=== PATIENT | female | born 1980 | race Native Hawaiian/Other Pacific Islander ===

== ENCOUNTER 2018-08-17 16:25 | Emergency (ER) | payer BC, MEDICAID, OTHER ==
[2018-08-17 17:39] VITALS: BMI 32.4
[2018-08-17] MEDS ORDERED: Lactated Ringer's 1,000 ML IV SCH (17:45)
[2018-08-17 20:53] LABS: BASO % 0.3 % (0.0-2.0); EOS # 0.1 K/uL (0.0-0.7); EOS % 1.2 % (0.0-4.0); HEMOGLOBIN 11.8 g/dL (12.0-16.0); LYMPH # 1.7 K/uL (1.0-4.3); MEAN CELL VOLUME 85.1 fl (81.0-99.0); MEAN CORPUSCULAR HGB CONC 31.8 g/dL (33.0-37.0); MEAN PLATELET VOLUME 7.5 fl (7.2-11.7); MONO # 0.8 K/uL (0.0-0.8); MONO % 6.7 % (0.0-10.0); NEUT # 9.6 K/uL (1.8-7.0); NEUT % 77.8 % (50.0-75.0); RBC 4.36 Mil/uL (3.80-5.20); RED CELL DISTRIBUTION WIDTH 16.1 % (11.5-14.5); WHITE BLOOD COUNT 12.3 K/uL (4.8-10.8)
--- NOTE | 2018-08-18 07:07 | OBHP ---
Datetime: 08/17/2018 17:25 IP Adm Impression: Term, intrauterine IP Admit Plan: Observation/Evaluation; Discharge home Admit Comment, IP Provider: 37 y/o AMA, , 39.3 wks based on US with MADAN of 08/21/18 presents t o [facility] with abdominal pain and contractions. Contractions started 2 am this monring, about 6/10, star ts from upper abdomen and goes down, lasts for about 5 mins, intermittent every 2 hours. Patient korina es any VB, LOF. Endorses good movements. Tolerating diet well PO. Denies any headache, CP, N/V/ D. Patient was scheduled for C- section tomorrow at [facility] but she doesn't want to go there. Patient h ad previous C section in 2015. course: @ [facility], Denies any complications. GBS + ObHx: C section 01/2018 due to distress. PMHx: Scoliosis PSHx: C section Allergies: Pollen, dust Meds: tylenol PRN Social Hx: Denies alochol/tobacco/drugs SexualHx: Denies STIs F/H: Denies O: VS stable PE general: NAD Chest: S1S2 present, RRR Lungs: CTA B/L Abdomen: Gravid, Mild tenderness over fundus and right sided abdomen, BS + SVE: Closed, high, No active VB Neuro: AAO x 3 A/P: 37 y/o AMA, with history of p-revious C section, , 39.3 wks based on US with MADAN of presents to [facility] with abdominal pain and contractions. - EFM and Tocomonitoring - Irregular contractions, Cervix closed, high - NST reactive, No decels - LR @ 999ml/hr - Will schedule patient for C section tomorrow. Patient advised to maintain hydraration Case discussed with attending. Dr. Ming Chávez, PGY1 Addendum: I saw on exam patient at presentation and follow-up. No evidence of labor at this time. hear t tracing category 1. Patient scheduled for repeat tomorrow at [facility], the patient would r ather be scheduled here at [facility]. Patient scheduled for repeat tomorrow at 9 AM. Renetta ent given preoperative instructions and discharged home with labor precautions. Patient will return t o labor and delivery tomorrow morning at 7 AM for repeat . [place] Pelvic Type - PN: Not Done Extremities - PN: Normal Abdomen - PN: Normal Back - PN: Normal Breast - PN: Not Done Lungs - PN: Normal Heart - PN: Normal Thyroid - PN: Not Done Neurologic - PN: Normal HEENT - PN: Normal General - PN: Normal FHR - Baseline A Provider: 140 Membranes, Provider: Intact Contraction Comments Provider: Irregular Comments, ACOG Physical Exam: general: NAD Chest: S1S2 present, RRR Lungs: CTA B/L Abdomen: Gravid, Mild tenderness over fundus and right sided abdomen, BS + SVE: Closed, high, No active VB Extremity: Trace pedal edema, No calf tenderness Neuro: AAO x 3 IP Hx Assessment: The History has been Reviewed and is Current EGA AdmitDate IP: 39.3 Vital Signs Provider: Reviewed; Within Normal Limits IP Chief Complaint: Uterine contractions; Maternal discomfort NICHD Variability Prov Fetus A: Moderate 6-25bpm NICHD Accel Fetus A IP Provider: 15X15 FHR Category Provider Fetus A: Category I NICHD Decel Fetus A IP Provider: None Dilatation, Provider: 0 Effacement, Provider: 0 Station, Provider: High Genitourinary Exam: Normal DTRs - PN: Not Done
== END 2018-08-17 19:55 | disposition home or self-care (01) ==
LOC: H.EROB2 16:25
DX: O26.93 Pregnancy related conditions, unspecified, third trimester (principal); R10.2 Pelvic and perineal pain; Z3A.39 39 weeks gestation of pregnancy; O47.1 False labor at or after 37 completed weeks of gestation
CPT/HCPCS: 85025; 86850; 86900; 99283; J7120

== ENCOUNTER 2018-08-18 07:06 | Inpatient (IN) | payer OTHER ==
[2018-08-17 17:39] VITALS: BMI 32.4
[2018-08-18] MEDS: Lactated Ringer's 1,000 ML IV ONE ×2 (07:30→08:30)
[2018-08-18] MEDS ORDERED: OXYTOCIN/0.9 % NS 20 UNIT/1,000 ML BAG IV ONE (07:30)
[2018-08-18] MEDS ORDERED: Oxytocin 30 UNIT 30 UNITS/500 ML BAG IV ONE ×2 (07:30→07:43)
[2018-08-18] MEDS ORDERED: OXYTOCIN/0.9 % NS 20 UNIT/1,000 ML BAG IV SCH ×2 (07:45→14:28)
[2018-08-18] MEDS ORDERED: Morphine 1 mg/ml preservative-free Inj(Duramorph) ONE (08:02)
[2018-08-18] MEDS ORDERED: ePHEDrine 50 mg/ml Inj ONE (08:02)
[2018-08-18] MEDS ORDERED: Sodium Chloride 0.9% 10 ML IV ONE (08:05)
[2018-08-18] MEDS ORDERED: ceFAZolin 2 GM in Sodium Chloride 0.9% 100 ML IVPB ONE (08:15)
[2018-08-18 08:32] LABS: BASO % 0.2 % (0.0-2.0); EOS # 0.2 K/uL (0.0-0.7); EOS % 1.5 % (0.0-4.0); HEMOGLOBIN 12.6 g/dL (12.0-16.0); LYMPH # 1.6 K/uL (1.0-4.3); LYMPH % 15.1 % (20.0-40.0); MEAN CELL VOLUME 86.7 fl (81.0-99.0); MEAN CORPUSCULAR HEMOGLOBIN 27.4 pg (27.0-31.0); MEAN CORPUSCULAR HGB CONC 31.6 g/dL (33.0-37.0); MEAN PLATELET VOLUME 7.7 fl (7.2-11.7); MONO # 0.7 K/uL (0.0-0.8); MONO % 6.7 % (0.0-10.0); NEUT # 8.2 K/uL (1.8-7.0); NEUT % 76.5 % (50.0-75.0); NRBC % 0.1 % (0.0-0.0); RBC 4.6 Mil/uL (3.80-5.20); RED CELL DISTRIBUTION WIDTH 15.4 % (11.5-14.5); WHITE BLOOD COUNT 10.7 K/uL (4.8-10.8)
[2018-08-18] MEDS ORDERED: Lactated Ringer's 1,000 ML IV SCH ×2 (08:45→11:45)
--- NOTE | 2018-08-18 08:55 | OBADHP ---
Datetime: 08/18/2018 08:01 Admit Comment, IP Provider: Pt is a 39.4wk based on 12 wk U/S. MADAN 08/21/18. Here for a sched uled C section, she started experiencing contractions yesterday and they continue this AM. Denies LOF , or vaginal bleeding. Reports good movement. OB Provider- [facility] [place]- Dr. 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 Briones -Breanna Bojorquez- PGY1 OB Hospitalist Addendum: 37 yo at 39+ 4 wks w/ a h/o previous c/s, scheduled for a repeat c/s today. Consents for procedure and possible transfusion obtained. (ES) Pelvic Type - PN: Adequate Extremities - PN: Normal Abdomen - PN: Normal Back - PN: Not Done Breast - PN: Not Done Lungs - PN: Normal Heart - PN: Normal Thyroid - PN: Not Done Neurologic - PN: Normal HEENT - PN: Normal General - PN: Normal FHR - Baseline A Provider: 145 Membranes, Provider: Intact Comments, ACOG Physical Exam: Gravid Abdomen +S1S2 RRR No wheezing, rales or rhonchi, CTA trace edema Pool Provider: Negative IP Hx Assessment: The History has been Reviewed and is Current Vital Signs Provider: Reviewed IP Chief Complaint: Uterine contractions; Scheduled Section NICHD Variability Prov Fetus A: Moderate 6-25bpm NICHD Accel Fetus A IP Provider: 15X15 FHR Category Provider Fetus A: Category I NICHD Decel Fetus A IP Provider: None Genitourinary Exam: Not Done DTRs - PN: Not Done EGA AdmitDate IP: 39.4 IP Adm Impression: Term, intrauterine ; No Active Labor; Intact Membranes IP Admit Plan: Admit to unit; Initiate Section protocol Datetime: 08/17/2018 17:25 Contraction Comments Provider: Irregular Dilatation, Provider: 0 Effacement, Provider: 0 Station, Provider: High
[2018-08-18 08:58] LABS: ALB/GLOB RATIO 0.9 (1.0-2.1); ALBUMIN 3.4 g/dL (3.5-5.0); ALT/SGPT 16 U/L (9-52); AST/SGOT 33 U/L (14-36); BLOOD UREA NITROGEN 9 mg/dl (7-17); GFR NON-AFRICAN AMERICAN > 60
[2018-08-18] MEDS ORDERED: Cellulose Hemostat 2X3 Sheet ONE (10:47)
[2018-08-18] MEDS ORDERED: DiphenhydrAMINE 50 mg/ml Inj IVP PRN ×2 (10:59→14:28)
[2018-08-18] MEDS ORDERED: Oxycodone/Acetaminophen 5/325 mg Tab PO PRN ×6 (10:59→14:28)
[2018-08-18] MEDS ORDERED: DiphenhydrAMINE 50 mg/ml Inj ONE (11:13)
--- NOTE | 2018-08-18 11:33 | OBDS ---
DELIVERY PERSONNEL Delivery Doctor: Dr. WEST (ob fellow) Spray Stainer: Madonna Duval RN Anesthesiologist: Candy Everett MD Resident: Dr. Bojorquez ob resident MATERNAL INFORMATION Delivery Anesthesia: Spinal Medications in Delivery: Pitocin 30units. Placenta Cultured: No Maternal Complications: None RN Comments: Surgicel Provider Comments: Pre-op dx: 37 yo at 39+4 wks w/ h/o previous c/s, scheduled for repeat c/ s Post-op dx: Same Procedure: Repeat low tranverse section Surgeon: Anselmo Assistants Christo West, OB fellow and Breanna Bojorquez, PGY-1 Anesthesiologist: Dr. Everett Anesthesia: Spinal Findings: Viable male delivered through clear fluid at 1032 w/ nuchal cord x 1, Apgars 9 an d 9. Wt 2860 gms, 6#5. Nl appearing uterus, tube and ovaries, anterior abdominal was scarred Complications: None EBL: 900mL LABOR SUMMARY EDC: 08/21/2018 00:00 No. Babies in Womb: 1 Attempted: No Labor Anesthesia: None LABOR INFORMATION Reason for Induction: Not Applicable Onset of Labor: Not in Labor Oxytocin: N/A Group B Beta Strep: Positive Antibiotics # of Doses: n/a Antibiotics Time of Last Dose: n/a Steroids Given: None Reason Steroids Not Administered: Not Applicable MEMBRANES Membranes Rupture Method: Artificial Rupture of Membranes: 08/18/2018 10:31 Length of Rupture (hrs): 0.02 Amniotic Fluid Color: Clear Amniotic Fluid Amount: Small Amniotic Fluid Odor: Normal STAGES OF LABOR Stage 3 hrs: 0 Stage 3 min: 0 CSECTION DELIVERY Primary Indication: Repeat Elective Secondary Indication: Repeat Elective CSection Urgency: Elective CSection Incidence: Repeat Labor: N/A Elective: N/A CSection Incision: Lower Vertical BABY A INFORMATION Infant Delivery Date/Time: 08/18/2018 10:32 Method of Delivery: Vaginal Born in Route : No : N/A Forceps: N/A Vacuum Extraction: N/A Shoulder Dystocia : No SHOULDER DYSTOCIA BABY A Infant Delivery Date/Time: 08/18/2018 10:32 PRESENTATION/POSITION BABY A Presentation: Cephalic Cephalic Presentation: Vertex PLACENTA INFORMATION BABY A Placenta Delivery Time : 08/18/2018 10:32 Placenta Method of Delivery: Manual Removal Placenta Status: Delivered SCORES BABY A Heart Rate 1 min: >100 bpm Resp Effort 1 min: Good Cry Reflex Irritability 1 min: Cough or Sneeze or Pulls Away Muscle Tone 1 min: Active Motion Color 1 min: Body [place], Extremities Blue Resuscitation Effort 1 min: Tactile Stimulation SCORE 1 MIN: 9 Heart Rate 5 min: >100 bpm Resp Effort 5 min: Good Cry Reflex Irritability 5 min: Cough or Sneeze or Pulls Away Muscle Tone 5 min: Active Motion Color 5 min: Body [place], Extremities Blue Resuscitation Effort 5 min: N/A SCORE 5 MIN: 9 INFORMATION BABY A Gestational Age at Delivery: 39.4 Gestational Status: Term Outcome : Liveborn Infant Condition : Stable Infant Sex: Male IDENTIFICATION/MEDS BABY A ID Band Number: [id number] ID Band Location: Left Leg; Left Arm Vitamin K Given : Not Given Erythromycin Given: Not Given WEIGHT/LENGTH BABY A Infant Birthweight (gms): 2860 Weight (lb): 6 Infant Weight (oz): 5 CORD INFORMATION BABY A No. Cord Vessels: 3 Nuchal Cord : Around Neck x1, Loose Cord Blood Taken: Yes Suction: Mouth ASSESSMENT BABY A Infant Complications: None Physical Findings at Delivery: Within Normal Limits Respirations: Appears Normal Streetcar Conductor/ALS Called : No Infant Care By: dr. gillespie/Edgardo Spencer Transferred To: Remains with Mother
--- NOTE | 2018-08-18 14:58 | RAD ---
Date of service: 08/18/2018 HISTORY: + quantiferon COMPARISON: Frontal chest radiograph 02/08/2016. FINDINGS: LUNGS: Trace fibrotic changes seen the mid left lung zone laterally. Borderline left perihilar infiltrate. Patient is slightly rotated toward the left limiting evaluation left hilar region. No right-sided infiltrate. PLEURA: No significant pleural effusion identified, no pneumothorax apparent. CARDIOVASCULAR: No aortic atherosclerotic calcification present. Normal cardiac size. No pulmonary vascular congestion. OSSEOUS STRUCTURES: No significant abnormalities. VISUALIZED UPPER ABDOMEN: Normal. OTHER FINDINGS: None. IMPRESSION: Borderline patchy density left perihilar region. Remaining lung claros reflect only linear atelectasis or fibrosis at the mid to inferior left lung zone once again. No interval pulmonary vascular congestion.
[2018-08-18] MEDS ORDERED: Simethicone 80 mg Chewtab PO SCH (16:00)
[2018-08-18] MEDS: Simethicone 80 mg Chewtab PO SCH ×2 (17:31→21:40)
[2018-08-18] MEDS: Lactated Ringer's 1,000 ML IV SCH (18:30)
--- NOTE | 2018-08-18 23:10 | OP ---
PROCEDURE DATE: 08/18/2018 PREOPERATIVE DIAGNOSIS: This is a 37-year-old G2, P1-0-0-1 at 39 weeks and 4 days with a history of previous section, scheduled for repeat section today. POSTOPERATIVE DIAGNOSIS: This is a 37-year-old G2, P1-0-0-1 at 39 weeks and 4 days with a history of previous section, scheduled for repeat section today. PROCEDURE: Repeat low-transverse section. SURGEON: Rom Briones MD ASSISTANTS: Dr. Georgia West, OB Fellow and Breanna Bojorquez, PGY-1 ANESTHESIA: Spinal. ANESTHESIOLOGIST: Gerry Everett MD FINDINGS: A viable male delivered through clear fluid at 1032 hours with a nuchal cord x1. Apgars 9 and 9 at 1 and 5 minutes respectively. The weight was 2860 g or 6 pounds 5 ounces. Normal-appearing uterus, tubes and ovaries. Anterior abdominal wall scarring due to previous surgery. COMPLICATIONS: None. DESCRIPTION OF PROCEDURE: The patient was taken to the operating room where spinal was placed. She was then prepped and draped in the normal sterile fashion in the dorsal supine position with a leftward tilt. A time-out was done. The spinal was tested and found to be adequate. A Pfannenstiel skin incision was then made with a scalpel and carried through to the underlying layer of fascia with the scalpel. The fascia was incised in the midline and the incision was extended laterally with the Saenz scissors. The inferior aspect of the fascial incision was then grasped with Lev clamps, elevated and the underlying rectus muscles were dissected off bluntly and with Saenz scissors. Attention was then turned to the superior aspect of this incision, which in a similar fashion was grasped, tented up with Lev clamps, and the rectus muscles dissected off bluntly and with Saenz scissors. The rectus muscles were then in the midline. The peritoneum was identified and entered digitally due to scar tissue. The peritoneal incision was then extended superiorly and inferiorly with good visualization of the bladder. The bladder blade was then inserted, and the vesicouterine peritoneum was identified, grasped with the pickups and entered sharply with Metzenbaum scissors. The vesicouterine peritoneum was noted to be scarred and so the bladder flap was not attempted to be created. The bladder blade was then reinserted and the lower uterine segment was incised in a transverse fashion with the scalpel. The uterine incision was then extended laterally with the bandage scissors. The bladder blade was removed and the 's head delivered atraumatically. The nose and mouth were suctioned with bulb suction. The cord was clamped and cut. The was handed off to the awaiting supervisor steno pool. Cord blood was collected. The placenta was then delivered as the uterus was massaged. The uterus was then exteriorized and cleared off all clots and debris with a dry sponge curettage. The uterine incision was then repaired with 0 Vicryl in a running locked fashion. A second layer of the same suture was used in an imbricating fashion for hemostasis and to reinforce the incision. The abdomen was then well irrigated. The uterus was returned to the abdomen. The uterine incision was found to be hemostatic, although it should be noted that there was some oozing of the anterior uterine wall above the incision due to the previous scarring and so Surgicel was placed over this area. The gutters were cleared of all clots. The peritoneum was then repaired with some 2-0 chromic. The rectus muscle was then reapproximated with a running stitch of 0 chromic. The fascia was reapproximated with 0-Vicryl in a running fashion. The subcutaneous fat was well irrigated. Bovie was applied to small bleeders. The space of the fat was closed with a running of 2-0 plain gut. The skin was then closed with 4-0 Monocryl in a subcuticular fashion. The patient tolerated the procedure well. Sponge, lap and needle counts were correct. The patient was taken to the recovery room in stable condition. Rom Briones MD SHAZIA
[2018-08-19] MEDS: Lactated Ringer's 1,000 ML IV SCH (01:50)
[2018-08-19] MEDS: Simethicone 80 mg Chewtab PO SCH ×5 (04:00→22:02)
[2018-08-19 07:20] LABS: HEMOGLOBIN 9.6 g/dL (12.0-16.0); MEAN CELL VOLUME 83.9 fl (81.0-99.0); MEAN CORPUSCULAR HEMOGLOBIN 27.3 pg (27.0-31.0); MEAN CORPUSCULAR HGB CONC 32.5 g/dL (33.0-37.0); RBC 3.51 Mil/uL (3.80-5.20); RED CELL DISTRIBUTION WIDTH 15.9 % (11.5-14.5); WHITE BLOOD COUNT 13.9 K/uL (4.8-10.8)
--- NOTE | 2018-08-19 07:53 | OBPPN ---
Datetime: 08/19/2018 05:29 PP Pain Prov: Within normal limits PP Nausea Prov: Denies PP Flatus Prov: Yes PP BM Prov: No PP Heart Prov: Normal PP Lungs Prov: Normal PP Abdomen/Uterus Prov: Normal PP Lochia Prov: Normal PP Extremities Prov: Normal PP Impression Prov: Normal progression PP Plan Prov: Continue present management PP Progress Note Prov: 37 y/o , POD1 s/p scheduled at 39.4wks. Pt was seen and examine d at bedside this AM. Pelvic pain is controlled with pain meds. ?Incision is c/d with intact dressing . Arango intact. B _ B feeding. Lochia is similar to menses volume. Voiding w/o difficulty. +Flatus _ -BM. She denies f/c/n/v/?CP/SOB. O: BP: 144/77 Temp: 100.3F, 103bpm, RR-16 PE: GEN: Resting comfortably in bed CVS: S1, S2 tachy LUNGS: CTA B/L ABD: +BS, soft with appropriate tenderness, fundus @ umbilical level; Dress c/d/i. EXT: Nonedematous NEURO: AAOx3 A/P: 37 y/o , POD1 s/p scheduled at 39.4wks. -Continue regular diet as tolerated. -Ambulation as tolerated encouraged. -Continue to encourage . -Continue medication for pain management. Case discussed with attending. -Dr. MAICO Gee, FM, PGY-1 OB Hospitalist Addendum: Pt seen and examined by me. Agree w/ above. POD 1 s/p repeat c/s, doing well, plans to breast feed. Rapid HIV was positive. HIV 1_2 Ab screen negative. Continue current m anagement. (ES) Vital Signs Provider PP: Reviewed
[2018-08-19] MEDS ORDERED: Enoxaparin 40 mg Syringe SC SCH (09:00)
[2018-08-19] MEDS ORDERED: Multivitamin With Minerals Tab PO SCH (09:00)
[2018-08-19] MEDS ORDERED: Influenza Vaccine (5 YR UP)/PF 60 MCG/0.5 ML SYR IM ONE (09:17)
[2018-08-19] MEDS: Enoxaparin 40 mg Syringe SC SCH (09:50)
[2018-08-19] MEDS: Multivitamin With Minerals Tab PO SCH ×2 (09:51→10:01)
[2018-08-20] MEDS: Simethicone 80 mg Chewtab PO SCH ×4 (05:04→21:19)
[2018-08-20] MEDS: Multivitamin With Minerals Tab PO SCH (08:40)
[2018-08-20] MEDS: Enoxaparin 40 mg Syringe SC SCH (08:41)
--- NOTE | 2018-08-20 18:49 | OBPPN ---
Datetime: 08/20/2018 06:45 PP Pain Prov: Within normal limits PP Nausea Prov: Denies PP Flatus Prov: Yes PP BM Prov: Yes PP Heart Prov: Normal PP Lungs Prov: Normal PP Abdomen/Uterus Prov: Normal PP Lochia Prov: Normal PP Extremities Prov: Normal PP Impression Prov: Normal progression PP Plan Prov: Continue present management PP Progress Note Prov: 37 y/o , POD2 s/p scheduled at 39.4wks. Pt was seen and examine d at bedside this AM. Pelvic pain continues to be controlled with pain meds. Incision is c/d/i. Arango discontinued. B _ B feeding. Lochia is similar to menses volume. Voiding w/o difficulty. -Flatus _ - BM. She denies f/c/n/v/?CP/SOB. VS: BP: 138/81 Temp: 98.6F, 102bpm, RR-16 PE: GEN: supine position, resting comfortably in bed CVS: S1, S2 RRR LUNGS: resp effort wnl; CTA B/L ABD: +BS, soft with appropriate tenderness, fundus @ umbilical level with incision c/d/i. EXT: Calves nontender, nonedematous NEURO: AAOx3 A/P: 37 y/o , POD2 s/p scheduled at 39.4wks. -Continue regular diet as tolerated. -Ambulation as tolerated encouraged. -Continue to encourage . -Continue medication for pain management. -SCD for DVT prophylaxis. Case discussed with attending. -Dr. MAICO Gee, FM, PGY-1 The patient was seen with the resident I agree with the note Vital Signs Provider PP: Reviewed; Within Normal Limits
[2018-08-21] MEDS: Simethicone 80 mg Chewtab PO SCH ×2 (04:27→09:25)
[2018-08-21] MEDS: Multivitamin With Minerals Tab PO SCH (08:38)
[2018-08-21] MEDS: Enoxaparin 40 mg Syringe SC SCH (09:25)
[2018-08-21 18:51] VITALS: BP 140/78; PULSE 77; RESP 18; TEMP 98.1; O2SAT 98
== END 2018-08-21 14:20 | disposition home or self-care (01) | DRG 788 ==
LOC: H.L&D 07:42 → H.OB/GYN 14:17
PROVIDERS: ADMIT Obstetrics & Gynecology; ATTEND Obstetrics & Gynecology
PROC: 10D00Z1 Extraction of Products of Conception, Low, Open Approach (ICD-10-PCS; principal; 2018-08-18)
PROC: 4A1HXCZ Monitoring of Products of Conception, Cardiac Rate, External Approach (ICD-10-PCS; 2018-08-18)
PROC: 3E02340 Introduction of Influenza Vaccine into Muscle, Percutaneous Approach (ICD-10-PCS; 2018-08-19)
DX: O34.211 Maternal care for low transverse scar from previous cesarean delivery (principal); O69.81X0 Labor and delivery complicated by cord around neck, without compression, not applicable or unspecified; O99.824 Streptococcus B carrier state complicating childbirth; Z37.0 Single live birth; Z3A.39 39 weeks gestation of pregnancy; O09.523 Supervision of elderly multigravida, third trimester; Z23 Encounter for immunization

== ENCOUNTER 2018-09-09 14:53 | Emergency (ER) | payer OTHER ==
[2018-09-09 14:53] VITALS: BMI 32.4
[2018-09-09 15:21] VITALS: RESP 18; TEMP 98; O2SAT 100
--- NOTE | 2018-09-09 17:27 | ED PDOC ---
HPI: Skin/Bite Injury Time Seen by Provider: 09/09/18 16:23 Chief Complaint (Nursing): Wound Check History Per: Patient Additional Complaint(s): Pt. states on 08/18/2018 she had a done without complications by Dr. Briones. States after the delivery she's had L sided pain to the wound and wound was open. She was seen by in the OBGYN clinic who applied steri-strips to the wound last week. Also reports noticing discharge to the area. Denies fever, antipyretic use, chills, N/V/D. Past Medical History Reviewed: Historical Data, Nursing Documentation, Vital Signs Vital Signs: Last Vital Signs Temp 98 F 09/09/18 15:19 Pulse 79 09/09/18 15:19 Resp 18 09/09/18 15:19 BP 143/94 H 09/09/18 15:19 Pulse Ox 100 09/09/18 15:19 - Medical History PMH: Denies: Depression, Diabetes, HTN - Surgical History Surgical History: (x2) - Family History Family History: States: No Known Family Hx - Immunization History Hx Tetanus Toxoid Vaccination: No Hx Influenza Vaccination: No (''Not sure'') Hx Pneumococcal Vaccination: No - Home Medications Home Medications: Ambulatory Orders Medication Instructions Recorded Multivit/Folic Acid/I 1 tab PO DAILY MDD 1 01/31/16 [] Ibuprofen [Motrin Tab] 600 mg PO Q6H PRN tab 08/21/18 - Allergies Allergies/Adverse Reactions: Allergies Allergy/AdvReac Type Severity Reaction Status Date / Time shrimp Allergy Mild DIZZINESS Verified 09/09/18 15:19 Review of Systems ROS Statement: Except As Marked, All Systems Reviewed And Found Negative Physical Exam - Physical Exam Appears: Positive for: Well, Non-toxic, No Acute Distress Skin: Positive for: Normal Color, Warm, DRY Gastrointestinal/Abdominal: Positive for: Bowel Sounds, Soft, Other (long horizontal scar which is healing with foul smell but no discharge or dehisence noted). Negative for: Tenderness Back: Negative for: L CVA Tenderness, R CVA Tenderness Neurologic/Psych: Positive for: Alert, Oriented (x3) - ECG O2 Sat by Pulse Oximetry: 100 - Progress ED Course And Treament: Case d/w Dr. Iqbal who agrees with plan and care. Does not recommend antibiotic therapy at this time but pt. is to f/u with OBGYN. Pt. and informed of plan and care. Both agree. Advised to f/u with OBGYN for further evaluation. Disposition - Clinical Impression Clinical Impression: Visit for wound check - Patient ED Disposition Is Patient to be Admitted: No - Disposition Referrals: Keri Conley CNM [Certified Nurse Hardening Machine Operator] - Disposition: Routine/Home Disposition Time: 17:26 Condition: STABLE Additional Instructions: FOLLOW UP WITH YOUR OBGYN FOR FURTHER EVALUATION RETURN TO ED IMMEDIATELY IF SYMPTOMS WORSEN CHEKO MATTHEW, thank you for letting us take care of you today. Your provider was Dorothy Bradshaw MD and you were treated for WOUND CHECK. The emergency medical care you received today was directed at your acute symptoms. If you were prescribed any medication, please fill it and take as directed. It may take several days for your symptoms to resolve. Return to the Emergency Department if your symptoms worsen, do not improve, or if you have any other problems. Please contact your doctor or call one of the physicians/clinics you have been referred to that are listed on the Patient Visit Information form that is included in your discharge packet. Bring any paperwork you were given at discharge with you along with any medications you are taking to your follow up visit. Our treatment cannot replace ongoing medical care by a primary care provider outside of the emergency department. Thank you for allowing the [facility] team to be part of your care today. If you had an X-Ray or CT scan: A Radiologist will review the ED reading if any change in treatment is needed we will contact you. If you had a blood, urine, or wound culture: It will take several days for the results, if any change in treatment is needed we will contact you. If you had an STI test: It will take 48 hours for the results. Please call after 1 week if you have not heard back. Instructions: Surgical Wound (DC) Forms: [employer] (E[place]ian)
[2018-09-09 18:14] VITALS: BP 140/90; PULSE 76
== END 2018-09-09 18:09 | disposition home or self-care (01) ==
LOC: H.ER 14:53
DX: Z48.01 Encounter for change or removal of surgical wound dressing (principal)